=== PATIENT | male | born 1960 | race Two or more races ===

== ENCOUNTER → 2024-10-14 | Outpatient (CLI) | payer BC, SELFPAY ==
[2024-10-14 12:13] LABS: Glucose Estimated Average 148 mg/dL (80-131); Hemoglobin A1C 6.8 % Hgb (4.8-6.0)
[2024-10-14 12:19] LABS: Cardiac Risk Estimate 3.4 RATIO (4.0-6.7); Cholesterol 162 mg/dL (132-200); HDL Cholesterol 47 mg/dL (40-60); LDL Cholesterol,Calculated 94 mg/dL (0-130); Triglycerides 106 mg/dL (30-150)
== END | disposition home or self-care (01) ==
LOC: COPL 11:27
PROVIDERS: PCP Internal Medicine; Referring Provider Internal Medicine; Visit Provider Internal Medicine
DX: E11.9 Type 2 diabetes mellitus without complications (principal)
CPT/HCPCS: 36415; 80061; 83036

== ENCOUNTER → 2025-02-10 | Outpatient (CLI) | payer BC, SELFPAY ==
[2025-02-10 12:19] LABS: Glucose Estimated Average 146 mg/dL (80-131); Hemoglobin A1C 6.7 % Hgb (4.8-6.0)
[2025-02-10 12:23] LABS: Cardiac Risk Estimate 3.6 RATIO (4.0-6.7); Cholesterol 171 mg/dL (132-200); HDL Cholesterol 48 mg/dL (40-60); LDL Cholesterol,Calculated 94 mg/dL (0-130); Triglycerides 145 mg/dL (30-150)
== END | disposition home or self-care (01) ==
LOC: COPL 11:15
PROVIDERS: PCP Internal Medicine; Referring Provider Internal Medicine; Visit Provider Internal Medicine
DX: E11.9 Type 2 diabetes mellitus without complications (principal)
CPT/HCPCS: 36415; 80061; 83036